=== PATIENT | male | born 1965 | race Two or more races ===

== ENCOUNTER 2019-05-12 09:30 | Emergency (ER) | payer MEDICAID ==
[~2019-05-12] VITALS: Ht 182.9 cm; Wt 64.4 kg
[2019-05-12 09:35] VITALS: BP 110/67
--- NOTE | 2019-05-12 10:00 | NUR ---
seen by dr bower and verbally discharge in stable condition. pt states will uber home.
== END 2019-05-12 10:01 | disposition home or self-care (01) ==
LOC: ER 09:33
DX: T30.0 Burn of unspecified body region, unspecified degree (principal); X11.8XXA Contact with other hot tap-water, initial encounter; Y93.E1 Activity, personal bathing and showering; Y92.89 Other specified places as the place of occurrence of the external cause; Y99.8 Other external cause status